=== PATIENT | female | born 1975 | race Caucasian/White ===

== ENCOUNTER 2018-08-14 22:27 | Emergency (ER) | payer OTHER, MEDICAID ==
[2018-08-14] MEDS: ONDANSETRON (ODT) 4 MG TAB ODT (23:11)
[2018-08-14] MEDS: HYDROCODONE/APAP (5/325) TAB PO (23:11)
[2018-08-14] MEDS: ACETAMINOPHEN 325 MG TAB PO (23:22)
== END 2018-08-14 23:24 | disposition home or self-care (01) ==
LOC: FTE 22:27
DX: H66.91 Otitis media, unspecified, right ear (principal); K08.89 Other specified disorders of teeth and supporting structures; J45.909 Unspecified asthma, uncomplicated
CPT/HCPCS: 99283; Z7610

== ENCOUNTER 2019-03-02 17:24 | Emergency (ER) | payer OTHER ==
[2019-03-02] MEDS: IBUPROFEN 600 MG TAB PO (18:00)
== END 2019-03-02 18:05 | disposition home or self-care (01) ==
LOC: FTE 17:24
DX: J02.9 Acute pharyngitis, unspecified (principal); J45.909 Unspecified asthma, uncomplicated
CPT/HCPCS: 99282; Z7502